=== PATIENT | female | born 2000 | race African-American/Black ===

== ENCOUNTER 2020-05-20 05:40 | Inpatient (IN) ==
[2020-05-20] MEDS ORDERED: ACETAMINOPHEN 325 MG TABLET PO PRN ×2 (06:18→15:35)
[2020-05-20] MEDS ORDERED: BUTORPHANOL 1 MG/ML VIAL IV PRN (06:18)
[2020-05-20] MEDS ORDERED: MEPERIDINE 50 MG/1 ML VIAL IM PRN (06:18)
[2020-05-20] MEDS ORDERED: BUTORPHANOL 2 MG/ML VIAL IV PRN (06:18)
[2020-05-20] MEDS ORDERED: ONDANSETRON 4 MG/2 ML VIAL IV PRN (06:18)
[2020-05-20] MEDS ORDERED: FAMOTIDINE 20 MG/2 ML VIAL IV ONE (06:20)
[2020-05-20] MEDS ORDERED: PROMETHAZINE 25 MG/1 ML VIAL IM ONE (06:20)
[2020-05-20] MEDS ORDERED: hydrOXYzine HCL 25 MG/1 ML VIAL IM PRN (06:20)
[2020-05-20] MEDS ORDERED: ONDANSETRON 4 MG/2 ML VIAL IV ONE (06:20)
[2020-05-20] MEDS ORDERED: ePHEDrine 50 MG/ML VIAL IV PRN (06:20)
[2020-05-20] MEDS ORDERED: NALOXONE 0.4 MG/ML VIAL IV PRN (06:20)
[2020-05-20] MEDS ORDERED: CITRIC ACID/SODIUM CITRATE 30 ML UDCUP PO ONE (06:20)
[2020-05-20] MEDS ORDERED: diphenhydrAMINE 50 MG/1 ML VIAL IV PRN ×2 (06:20)
[2020-05-20] MEDS ORDERED: LACTATED RINGERS 1,000 ML IV ONE (06:20)
[2020-05-20] MEDS ORDERED: fentaNYL 2 MCG/ROPIV 0.2% EPID 100 ML EPIDURAL SCH (06:30)
[2020-05-20] MEDS ORDERED: OXYTOCIN 20 UNIT in SODIUM CHLORIDE 0.9% 1,000 ML IV SCH (06:30)
[2020-05-20] MEDS ORDERED: LACTATED RINGERS 1,000 ML IV SCH ×2 (06:30)
[2020-05-20 06:48] LABS: Basophils % 0.3 % (0.0-0.8); Eosinophils % 0.1 % (0.00-10.9); Hematocrit 36.4 VOL% (35.7-47.0); Hemoglobin 11.5 GM/DL (12.0-16.0); Immature Granulocytes % 0.4 %; Immature Granulocytes Absolute 0.06 #; Lymphocytes # 3.9 10*3/uL (1.4-4.0); Lymphocytes % 27.8 % (21.3-54.2); Mean Corpuscular HGB Conc 31.6 GM/DL (32-36); Mean Corpuscular Volume 84.7 FL (87-102); Mean Platelet Volume 10.6 FL (9.6-12.0); Monocytes % 6.4 % (1.7-12.7); Platelet Count 261 T/CUMM (130-400); Red Cell Distribution Width 14.1 % (9.3-17.3); White Blood Count 14.1 T/CUMM (4-12)
[2020-05-20] MEDS ORDERED: AMPICILLIN INJ 2,000 MG in SODIUM CHLORIDE 0.9% 100 ML IV ONE (07:01)
[2020-05-20] MEDS ORDERED: OXYTOCIN/LR 20 UNIT/1,000 ML BAG IV ONE ×3 (07:33→15:35)
[2020-05-20] MEDS ORDERED: AMPICILLIN INJ 1,000 MG in SODIUM CHLORIDE 0.9% 100 ML IV SCH (11:30)
[2020-05-20 11:37] LABS: Apearance,Urine CLEAR (Clear); Bacteria,Urine Occasional /HPF (Few); Bilirubin,Urine Negative (Negative); Blood, Urine Negative (Negative); Glucose,Urine (UA) Negative (Negative); Ketones,Urine Negative (Negative); Nitrite,Urine Negative (Negative); Protein,Urine Negative; RBC,Urine 1 /HPF (0-4); Urine Color Yellow (Yellow); Urine Specific Gravity 1.009 (1.001-1.035); Urine Urobilinogen < 2.0 EU/DL (0.2-1.0); WBC,Urine <1 /HPF (0-6)
[2020-05-20] MEDS ORDERED: TRANEXAMIC ACID 1,000 MG/10 ML VIAL ONE (12:31)
[2020-05-20] MEDS ORDERED: miSOPROStoL 200 MCG TABLET ONE (12:31)
[2020-05-20] MEDS ORDERED: METHYLERGONOVINE 0.2 MG/1 ML AMP ONE (12:32)
[2020-05-20] MEDS ORDERED: CARBOPROST TROMETHAMINE 250 MCG/ML AMP IM ONE (12:32)
[2020-05-20] MEDS ORDERED: DIPH/TET/ACEL PERT BOOSTER VACCINE 0.5 ML VIAL IM ONE (15:35)
[2020-05-20] MEDS ORDERED: BISACODYL 10 MG SUPP RECTAL PRN (15:35)
[2020-05-20] MEDS ORDERED: IBUPROFEN 800 MG TABLET PO PRN (15:35)
[2020-05-20] MEDS ORDERED: RHO(D) IMMUNE GLOBULIN 300 MCG SYRINGE IM ONE (15:35)
[2020-05-20] MEDS ORDERED: oxyCODONE/ACETAMINOPHEN 5-325 MG TABLET PO PRN ×2 (15:35)
[2020-05-20] MEDS ORDERED: LANOLIN 50% CREAM 0.3 OZ TUBE TOP PRN (15:35)
[2020-05-20] MEDS ORDERED: BENZOCAINE 20%/MENTHOL 0.5% SPRAY 56 GM CAN TOP PRN (15:35)
[2020-05-20] MEDS ORDERED: MEASLES/MUMPS/RUBELLA VACCINE 0.5 ML VIAL SUBCUT ONE (15:35)
[2020-05-20] MEDS ORDERED: HYDROCORTISONE 2.5% RECTAL CREAM 30 GM TUBE TOP PRN (15:35)
[2020-05-20] MEDS ORDERED: WITCH HAZEL PADS 100/JAR TOP PRN (15:35)
[2020-05-20] MEDS: DOCUSATE SODIUM 100 MG CAPSULE PO SCH (20:52)
[2020-05-21 06:43] LABS: Basophils % 0.3 % (0.0-0.8); Eosinophils % 0.2 % (0.00-10.9); Hemoglobin 9.9 GM/DL (12.0-16.0); Immature Granulocytes % 0.3 %; Immature Granulocytes Absolute 0.04 #; Lymphocytes # 3.4 10*3/uL (1.4-4.0); Lymphocytes % 26.1 % (21.3-54.2); Mean Corpuscular HGB Conc 31.9 GM/DL (32-36); Mean Corpuscular Volume 83.3 FL (87-102); Mean Platelet Volume 10.7 FL (9.6-12.0); Monocytes % 9.6 % (1.7-12.7); Neutrophils % 63.5 % (38.7-73.9); Platelet Count 201 T/CUMM (130-400); Red Blood Count 3.72 MC/CUMM (3.8-5.5); Red Cell Distribution Width 14.3 % (9.3-17.3); White Blood Count 13.1 T/CUMM (4-12)
[2020-05-21] MEDS: DOCUSATE SODIUM 100 MG CAPSULE PO SCH ×2 (09:53→21:15)
[2020-05-22 07:37] VITALS: BP 98/59
[2020-05-22] MEDS: DOCUSATE SODIUM 100 MG CAPSULE PO SCH (08:47)
== END 2020-05-22 13:10 | disposition home or self-care (01) | DRG 560 ==
LOC: N.LDOUT 05:40 → N.LD 05:42 → N.OB 15:25
PROVIDERS: ADMIT Obstetrics & Gynecology; ATTEND Obstetrics & Gynecology